=== PATIENT | male | born 1945 | race Caucasian/White ===

== ENCOUNTER 2017-03-19 13:49 | Emergency (ER) | payer BC, MEDICARE ==
[~2017-03-19] VITALS: Ht 180.3 cm; Wt 103.0 kg
[2017-03-19] MEDS ORDERED: ASPIRIN 81 MG TABLET CHEW ONE (14:52)
[2017-03-19] MEDS ORDERED: SODIUM CHLORIDE FLUSH 10ML SYR IVF ONE (15:00)
[2017-03-19] MEDS ORDERED: ASPIRIN 81 MG TABLET CHEW PO ONE (15:00)
[2017-03-19 15:10] LABS: HEMATOCRIT 43.6 % (39.2-51.8); HEMOGLOBIN 14.8 g/dL (13.7-18.0); WHITE BLOOD COUNT 10.5 x10^3/uL (3.4-10)
[2017-03-19 15:21] LABS: ASPARTATE AMINO TRANSFERASE 16 U/L (15-37); BLOOD UREA NITROGEN 25 mg/dL (7-18)
[2017-03-19 15:42] LABS: IS PT STATUS REG ER OR PRE ER? YES
[2017-03-19 18:13] VITALS: BP 154/95
== END 2017-03-19 18:16 | disposition home or self-care (01) ==
LOC: ED 18:10
DX: R07.89 Other chest pain (principal); R20.2 Paresthesia of skin; Z87.891 Personal history of nicotine dependence
CPT/HCPCS: 36415; 71010; 72125; 80053; 84484; 85025; 93005; 99285